=== PATIENT | female | born 1990 | race Caucasian/White ===

== ENCOUNTER 2017-12-10 00:49 | Observation (INO) | payer MEDICAID ==
--- NOTE | 2017-12-10 01:11 | PDGENHP ---
History and Physical History and Physical: CARE: [facility] HPI: Patient is a [id number] with IUP@30-5wks that presents to L&D with complaints of bright red vaginal bleeding after intercourse tonight. She denies any contractions, LOF. She reports +FM. EDC:02/13/18 which is based on Ultrasound at 8weeks. Her is complicated by: SHANA @27wks, previa- RESOLVED Review of Systems: Constitutional: Denies any fever, chills, or fatigue HEENT: denies any visual changes, difficulty swallowing, hearing loss Cardiovascular: Denies any chest pain, palpitations, leg swelling Respiratory: denies any cough, wheezing, or shortness of breathe GI: Denies any nausea, vomiting, diarrhea, constipation : denies any dysuria, urgency, frequency, vaginal bleeding Musculoskeletal: denies any muscle or bone pain Skin: denies any rashes Neuro: denies any headache, seizures, lightheadedness, dizziness, or loss of consciousness Psychiatric: denies any depression, anxiety, or SI/HI thoughts HISTORY: Previous OB history: TABx1 Past medical history: h/o anxiety/depression Past surgical history: none Medications: PNV Allergies (list reaction): NKDA LABS: Rh: O pos ABS: Neg Rubella: Immune HbsAg: NR HIV: NR VDRL: NR 1hr: 62 GC: Neg Chlamydia: Neg Pap: Normal GBS: unknown BMI: (prepreg) 25 PHYSICAL EXAM: Constitutional: WN, A&Ox3 HEENT: normocephalic atraumatic, supple Heart: RRR, no murmur Chest: CTA-B Abdomen: Soft, nontender, gravid SVE: 1/th/high Extremities: no edema, negative homans sign Neuro: grossly normal Psych: normal affect assessment: Reassuring FHTs, baseline 130 +accels, no decels, moderate variability Contractions: toco q none Assessment: 1) [id number] with IUP@30-5wks 2) no evidence of labor 3) CL >4cm 4) post coital bleeding 5) cat 1 FHR tracing 6) anterior placenta/no previa/no evidence of abruption Plan: 1) observation 2) will re-eval in the morning 3) if no contractions/cervical change will consider d/c home in AM 4) NST prior to d/c home
[2017-12-10] MEDS ORDERED: TERBUTALINE SULFATE 1 MG/ML VIAL SC PRN (01:14)
--- NOTE | 2017-12-10 09:03 | OBPROG ---
Labor Progress Note Assessment/Plan: Assessment: 27 y/o @30 5/7 wks with vaginal bleeding post-coital Plan: Pt is stable with no evidence of labor and no further active bleeding this am- dark red spotting NST reactive, Cat I tracing; on toco there are no ctx's or irritability noted - SVE deferred U/S showed CL > 4cm and anterior placenta with no previa Plan for d/c home today Instructions reviewed with pt Pelvic rest until seen by Midwives 12/21 Travel precautions given-has baby shower in [place] this PTL and bleeding precautions given to pt 12/10/17 09:05 Subjective/Intrapartum Course: 12/10/17 09:03 Pt seen and examined. Doing well, with no complaints. She notes some dark red spotting this am on underwear, but no further active, bright red bleeding. Denies any cramping or BH, but states lower abdomen is sore. Good FM noted. She is going to [place] this weekend for a baby shower and to see her mother. - Contraction Pattern Assessment Current Contraction Pattern: Other (Specify) (no ctx's) - FHR Assessment Holley FHR (bpm): 130 (Cat I ) FHR Pattern Variability: Moderate FHR Category: 1 - AP Antepartum Course: 12/10/17 09:07 IUP @ 30 5/7 weeks with post-coital bleeding; CL >4cm and anterior placenta with no previa. - Physical Exam General Appearance: WD/WN, alert, no apparent distress Abdomen: non-tender, soft, other (gravid) Extremities: non-tender, normal inspection Neuro/Psych: alert, normal mood/affect, oriented x 3 Oxytocin Orders Assessment - Pre-Induction/Augmentation Assessment Gestational Age: 35 week(s) and 0 day(s) ICD10 Worksheet Patient Problems: Problems Problem Status Onset PCB (post coital bleeding) Acute Vaginal bleeding in Acute - ICD10 Problem Qualifiers (1) Vaginal bleeding in (2) PCB (post coital bleeding)
== END 2017-12-10 09:52 | disposition home or self-care (01) ==
LOC: FLD 00:49
PROVIDERS: ADMIT Advanced Practice Midwife; ATTEND Advanced Practice Midwife
DX: O46.93 Antepartum hemorrhage, unspecified, third trimester (principal); Z3A.30 30 weeks gestation of pregnancy
CPT/HCPCS: 76805; G0378